=== PATIENT | male | born 1995 | race Caucasian/White ===

== ENCOUNTER 2022-12-28 20:26 | Emergency (ER) | payer MEDICAID ==
[2022-12-28] MEDS ORDERED: IBUP-1955 PO (23:41)
== END 2022-12-28 21:16 | disposition left against medical advice (07) ==
LOC: ER 20:28
DX: S01.81XA Laceration without foreign body of other part of head, initial encounter (principal); Z53.21 Procedure and treatment not carried out due to patient leaving prior to being seen by health care provider; X58.XXXA Exposure to other specified factors, initial encounter; Y93.89 Activity, other specified; Y92.89 Other specified places as the place of occurrence of the external cause; Y99.8 Other external cause status

== ENCOUNTER 2022-12-28 21:49 | Emergency (ER) | payer MEDICAID ==
[~2022-12-28] VITALS: Ht 177.8 cm; Wt 88.5 kg
[2022-12-28] MEDS ORDERED: IBUP-1955 PO (23:41)
[2022-12-28 23:48] VITALS: BP 132/69; TEMP 98.2; O2SAT 100
== END 2022-12-28 23:48 | disposition home or self-care (01) ==
LOC: ER 21:52
DX: S01.412A Laceration without foreign body of left cheek and temporomandibular area, initial encounter (principal); I10 Essential (primary) hypertension; Z79.899 Other long term (current) drug therapy; W22.8XXA Striking against or struck by other objects, initial encounter; Y93.89 Activity, other specified; Y92.89 Other specified places as the place of occurrence of the external cause; Y99.8 Other external cause status
CPT/HCPCS: 70486-TC